=== PATIENT | female | born 1960 | race Caucasian/White ===

== ENCOUNTER 2022-03-01 22:16 | Emergency (ER) | payer OTHER ==
[~2022-03-01] VITALS: Ht 167.6 cm; Wt 89.8 kg
[2022-03-01 22:19] VITALS: BP 145/91
--- NOTE | 2022-03-02 00:39 | NUR ---
PT TAKEN TO BED 3
--- NOTE | 2022-03-02 02:05 | NUR ---
Dr. Obregon examining patient.
[2022-03-02 02:45] VITALS: BP 123/72
--- NOTE | 2022-03-02 02:45 | NUR ---
Patient discharged with v/s stable. Written and verbal after care instructions given and explained. Patient verbalized understanding. Ambulatory with steady gait. All questions addressed prior to discharge. Advised to follow up with PMD.
== END 2022-03-02 02:45 | disposition home or self-care (01) ==
LOC: MED 22:16
DX: F10.129 Alcohol abuse with intoxication, unspecified (principal); R53.1 Weakness; E11.9 Type 2 diabetes mellitus without complications; I10 Essential (primary) hypertension; Z79.899 Other long term (current) drug therapy
CPT/HCPCS: 99283